=== PATIENT | female | born 1960 | race Caucasian/White ===

== ENCOUNTER 2018-07-28 13:44 | Emergency (ER) | payer OTHER ==
[~2018-07-28] VITALS: Ht 165.1 cm; Wt 81.8 kg
[~2018-07-28 13:44] MED LIST: COLACE100 MG PO; CYCLOBENZAPRINE10 MG PO; GABAPENTIN100 MG PO; LEXAPRO10 MG PO; LISINOPRIL5 MG PO; SINEMET 251 UDTAB.SA PO; SYNTHROID137 MCG PO; SYNTHROID150 MCG PO; ULTRAM50 MG PO
[2018-07-28 14:11] VITALS: Ht 165.1 cm; Wt 81.8 kg
[2018-07-28] MEDS ORDERED: CELEXA40 MG PO (14:12)
[2018-07-28] MEDS ORDERED: KLONOPIN1 MG PO (14:13)
[2018-07-28] MEDS ORDERED: TYLENOL W/CODEI1 TAB PO (14:13)
[2018-07-28] MEDS ORDERED: NAPROSYN500 MG PO (16:50)
[2018-07-28 17:23] VITALS: BP 132/85
== END 2018-07-28 17:25 | disposition home or self-care (01) ==
LOC: D.ER 13:44
DX: S46.911A Strain of unspecified muscle, fascia and tendon at shoulder and upper arm level, right arm, initial encounter (principal); W23.0XXA Caught, crushed, jammed, or pinched between moving objects, initial encounter; Y93.89 Activity, other specified; Y92.89 Other specified places as the place of occurrence of the external cause; E07.9 Disorder of thyroid, unspecified; I10 Essential (primary) hypertension; F17.200 Nicotine dependence, unspecified, uncomplicated